=== PATIENT | female | born 1960 | race Caucasian/White ===

== ENCOUNTER → 2019-11-20 14:40 | Outpatient (CLI) | payer BC, SELFPAY ==
--- NOTE | 2019-11-20 14:47 | MM_ITS ---
PROCEDURE: MM DIG SCREENING MAMM BI W/CAD CLINICAL INDICATION: Routine Screening Mammogram There is no personal or family history of breast cancer COMPARISON: [facility] DIG MAMMO, CAD from 10/31/2015 [facility] MARLYS MAMMO,CAD from 08/10/2017 [facility] MAMMO,CAD from 08/10/2017 TECHNIQUE: Standard CC and MLO images and 3D Tomosynthesis was obtained. R2 CAD reviewed. FINDINGS: There is a markedly dense and somewhat heterogenic parenchymal pattern in both breasts and the findings are fairly symmetrical and bilateral. Marlys images are most helpful in this type of breast parenchyma and I see no suspicious abnormality in either breast. There are no suspicious microcalcifications. IMPRESSION: Dense and heterogenic parenchymal pattern most consistent with prominent fibrocystic change BI-RAD Category: 1 Negative FOLLOW-UP: 1YR 1 Year Follow-up (A letter has been sent to the patient regarding results of the study.) Dictated by: Dr. Kristopher Posada MD 11/21/2019 13:[address] Kristopher Posada MD in [place] 11/21/2019 13:41
== END ==
PROVIDERS: PCP Internal Medicine; Visit Provider Obstetrics & Gynecology
DX: Z12.31 Encounter for screening mammogram for malignant neoplasm of breast (principal)
CPT/HCPCS: 77063; 77067

== ENCOUNTER → 2021-06-04 15:13 | Outpatient (CLI) | payer BC, SELFPAY ==
--- NOTE | 2021-06-04 15:13 | MM_ITS ---
PROCEDURE: MM DIG SCREENING MAMM BI W/CAD Digital Breast Tomosynthesis Included CLINICAL INDICATION: visit for screening mammogram COMPARISON: MG [facility]YS MAMMO,CAD from 08/10/2017 MG [facility] MAMMO,CAD from 08/10/2017 MG MM DIG SCREENING MAMM BI W/CAD from 11/20/2019 TECHNIQUE: Standard CC and MLO images and 3D Tomosynthesis was obtained. R2 CAD reviewed. FINDINGS: The breasts are extremely dense which lowers the sensitivity of mammography. No suspicious appearing mass, malignant-appearing microcalcification, architectural distortion, or skin thickening. Correlation with physical exam needed in this patient with dense breast tissue. No significant change with no evidence of malignancy. Benign-appearing calcification noted in the left breast not significantly changed in the outer aspect centrally. Scattered areas of asymmetric tissue. Benign-appearing calcifications right breast. IMPRESSION: Benign findings. No evidence of malignancy BI-RAD Category: 2 Benign Finding FOLLOW-UP: 1 YR 1 Year Follow-up. Also recommend correlation with physical exam in this patient with dense breast tissue. Any palpable areas of concern should be examined with ultrasound. (A letter has been sent to the patient regarding results of the study.) Dictated by: Andrei Zhong MD 06/12/2021 09:59 Andrei Zhong MD in [place] 06/12/2021 09:59
== END ==
PROVIDERS: PCP Family Medicine; Visit Provider Obstetrics & Gynecology
DX: Z12.31 Encounter for screening mammogram for malignant neoplasm of breast (principal)
CPT/HCPCS: 77063; 77067

== ENCOUNTER → 2021-07-09 10:26 | Outpatient (CLI) | payer BC, SELFPAY | PROVIDERS: PCP Family Medicine; Visit Provider Nurse Practitioner | DX: Z20.822 Contact with and (suspected) exposure to COVID-19 (principal) | CPT/HCPCS: C9803; U0003; U0005 ==

== ENCOUNTER → 2021-08-19 09:43 | Outpatient (CLI) | payer BC, SELFPAY ==
--- NOTE | 2021-08-19 09:46 | XR_ITS ---
PROCEDURE: XR FOOT WT BEARING LT 3V CLINICAL INDICATION: pain COMPARISON: No exams were available for comparison FINDINGS: No fracture or dislocation. No lytic or blastic change. There is normal mineralization. Mild osteoarthritic change 1st MTP joint. Other findings:None. 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
--- NOTE | 2021-08-19 09:46 | XR_ITS ---
PROCEDURE: XR FOOT WT BEARING RT 3V CLINICAL INDICATION: pain COMPARISON: No exams were available for comparison FINDINGS: No fracture or dislocation. No lytic or blastic change. There is normal mineralization. The joint spaces are well-preserved. No significant degenerative/arthritic changes. No erosive changes evident. Other findings:Bony hypertrophy is present at the distal aspect of the 1st metatarsal. IMPRESSION: Mild bony hypertrophy of the distal 1st metatarsal otherwise negative Dictated by: Andrei Zhong MD 08/19/2021 12:22 Andrei Zhong MD in [place] 08/19/2021 12:22
== END ==
PROVIDERS: PCP Family Medicine; Visit Provider Podiatrist
DX: M79.672 Pain in left foot (principal); M79.671 Pain in right foot
CPT/HCPCS: 73630

== ENCOUNTER → 2021-11-05 14:42 | Outpatient (CLI) | payer BC, SELFPAY | PROVIDERS: PCP Family Medicine; Visit Provider Nurse Practitioner | DX: Z20.822 Contact with and (suspected) exposure to COVID-19 (principal) | CPT/HCPCS: C9803; U0003; U0005 ==

== ENCOUNTER → 2021-11-10 08:48 | Outpatient (CLI) | payer BC, SELFPAY ==
[2021-11-11 06:47] LABS: Covid-19 Nasal PCR Sendout Lex NOT DETECTED
== END ==
PROVIDERS: PCP Family Medicine; Visit Provider Nurse Practitioner
DX: Z20.822 Contact with and (suspected) exposure to COVID-19 (principal)
CPT/HCPCS: C9803; U0004; U0005

== ENCOUNTER → 2022-11-03 13:42 | Outpatient (CLI) | payer BC, SELFPAY ==
--- NOTE | 2022-11-03 13:43 | MM_ITS ---
PROCEDURE INFORMATION: Exam: MG Bilateral Screening 3D Mammography Exam date and time: 11/03/2022 1:38 PM Age: 62 years old Clinical indication: Screening examination; Additional info: Screening breast exam TECHNIQUE: Imaging protocol: Bilateral Screening tomosynthesis and 2D mammography including computer-aided detection (CAD) when performed. COMPARISON: 1. MG MM DIG SCREENING MAMM BI W/CAD 06/04/2021 3:23 PM 2. MG MM DIG SCREENING MAMM BI W/CAD 11/20/2019 3:23 PM 3. MG [facility] SC MARLYS MAMMO,CAD 08/10/2017 2:14 PM FINDINGS: MAMMOGRAPHY: Breast composition: The breasts are extremely dense, which lowers the sensitivity of mammography. Mass: No suspicious masses. Architectural distortion: No suspicious distortion. Calcifications: No suspicious calcifications. Asymmetric density: None. Skin thickening: None. Axillary adenopathy: None. IMPRESSION: No mammographic evidence of malignancy. Annual screening is recommended unless otherwise clinically indicated. ASSESSMENT: BI-RADS Category 1: Negative
== END ==
PROVIDERS: PCP Family Medicine; Visit Provider Obstetrics & Gynecology
DX: Z12.31 Encounter for screening mammogram for malignant neoplasm of breast (principal)
CPT/HCPCS: 77063; 77067

== ENCOUNTER 2022-12-18 10:28 | Day surgery (SDC) | payer BC, SELFPAY ==
[2022-12-18] VITALS (10 sets, daily range): BP systolic 81–139; BP diastolic 51–79; PULSE 63–86; RESP 14–18; TEMP 36.4–36.7; O2SAT 93–100; BMI 18.6
--- NOTE | 2022-12-18 11:00 | EXP.ANES.CKL ---
[facility] Disclaimer: The information contained in this section may have been updated after the patient was seen, as this information can be updated by other users. Medical History (Reviewed 12/18/22 @ 11: by Joe Agustin CRNA) No significant past medical history Surgical History (Reviewed 12/18/22 @ 11: by Joe Agustin CRNA) H/O hysterectomy with oophorectomy History of hysterectomy Hx of bone marrow donation Hx of umbilical hernia repair Family History (Reviewed 12/18/22 @ 11: by Joe Agustin CRNA) Other No significant family history Social History (Reviewed 12/18/22 @ 11: by Joe Agustin CRNA) Smoking Status: Never smoker alcohol intake: current substance use type: denies use current occupational status: employed Travel in the last 8 weeks: None household members: spouse housing: house marital status: education level: college service: No caffeine: Yes special lynn needs: No agree to transfusion: No do you feel safe at home: Yes victim of physical abuse: No victim of emotional abuse: No victim of sexual abuse: No would you like helpful sources: No [facility] Anesthesia Checklist Patient Identification Patient Identification: Arm Band and Verbal (Name & ) Structural Data Admitted From: Home Planned Operative Procedure/s: Colonoscopy Consent for Planned Operative Procedure(s) Verified: Yes NPO Status Verified Time NPO: 00:00 Airway Assessment C-Spine Mobility Assessed: Yes TMJ Mobility Assessed: Yes Dentition: Good Dentition Anesthesia Plan Anesthesia Risk discussed: Yes Anesthesia Plan: Verified ASA Class: I Anesthesia Type: MAC
--- NOTE | 2022-12-18 11:38 | HMH.SCOPE ---
Procedure: Date: 12/18/22 Patient Date of :: 1960 Procedure Performed:: Total colonoscopy to terminal ileum Indications:: Patient is a 62-year-old female referred by Dr. Gutierrez for screening colonoscopy. She did have a previous colonoscopy 10 years ago which was normal. Performing Provider:: Vernon Guzman MD Referring Provider:: Bo Gutierrez MD Sedation:: MAC Procedure:: Patient history was obtained and appropriate physical examination was performed. Patient's medications and allergies were reviewed. Informed consent was obtained after explaining the benefits, alternatives, and risks of the procedure including, but not limited to, bleeding, perforation, missed lesions, and adverse reaction to anesthesia medications. Patient was transported to endoscopy procedure room. Patient was connected to monitoring devices. Throughout the procedure the patient's blood pressure, pulse, and oxygen saturations were monitored continuously. Patient identification and planned procedure were verified by the staff. Patient was positioned in lateral decubitus position. Digital anorectal exam was performed. Variable stiffness Olympus colonoscope was inserted and advanced under direct visualization to the cecum. Adequacy of the colonic preparation was noted. The colonoscope was advanced a short distance into the terminal ileum. The colonoscope was then slowly withdrawn while carefully examining the color, texture, anatomy, and integrity of the mucosoa circumferentially. Within the rectum retroflexion was performed. Colonoscope was then withdrawn. Findings:: Normal colonoscopy to terminal ileum Recommendations:: Repeat colonoscopy up to 10 years Complications:: None immediate Estimated blood obtained (mL): 0
== END 2022-12-18 13:00 | disposition home or self-care (01) ==
PROVIDERS: PCP Family Medicine; Visit Provider Surgery
PROC: 0DJD8ZZ Inspection of Lower Intestinal Tract, Via Natural or Artificial Opening Endoscopic (ICD-10-PCS; CPT 45378; principal; 2022-12-18 11:30)
DX: Z12.11 Encounter for screening for malignant neoplasm of colon (principal)
CPT/HCPCS: 45378; J2704

== ENCOUNTER 2024-07-24 09:34 | Outpatient (CLI) | payer BC, SELFPAY ==
--- NOTE | 2024-07-24 09:39 | MM_ITS ---
PROCEDURE INFORMATION: Exam: MG Bilateral Screening 3D Mammography Exam date and time: 07/24/2024 9:53 AM Age: 64 years old Clinical indication: Screening. No family history of breast cancer. TECHNIQUE: Imaging protocol: Bilateral Screening tomosynthesis and 2D mammography including computer-aided detection (CAD) when performed. COMPARISON: 1. MG MM DIG SCREENING MAMM BI W/CAD 11/03/2022 1:38 PM 2. MG MM DIG SCREENING MAMM BI W/CAD 06/04/2021 3:23 PM 3. MG MM DIG SCREENING MAMM BI W/CAD 11/20/2019 3:23 PM 4. MG [facility]YS MAMMO,CAD 08/10/2017 2:14 PM FINDINGS: MAMMOGRAPHY: Breast composition: The breasts are extremely dense, which lowers the sensitivity of mammography. Mass: None. Architectural distortion: None. Calcifications: No suspicious calcifications. Asymmetric density: None. Skin thickening: None. Axillary adenopathy: None. IMPRESSION: No mammographic evidence of malignancy. Annual screening is recommended unless otherwise clinically indicated. ASSESSMENT: BI-RADS Category 1: Negative.
== END 2024-07-24 23:59 | disposition home or self-care (01) ==
LOC: RAD 09:36
PROVIDERS: PCP Family Medicine; Visit Provider Obstetrics & Gynecology
DX: Z12.31 Encounter for screening mammogram for malignant neoplasm of breast (principal)
CPT/HCPCS: 77063; 77067

== ENCOUNTER 2024-08-27 07:17 | Emergency (ER) | payer BC, SELFPAY ==
[2024-08-27] VITALS (8 sets, daily range): BP systolic 114–162; BP diastolic 63–109; PULSE 57–78; RESP 13–17; TEMP 36.6; O2SAT 95–100; BMI 18.6
--- NOTE | 2024-08-27 07:34 | CT_ITS ---
PROCEDURE INFORMATION: Exam: CTA Neck With Contrast Exam date and time: 08/27/2024 7:48 AM Age: 64 years old Clinical indication: Stroke-like symptoms; Visual disturbance; Additional info: Possible stroke, R ocular floaters TECHNIQUE: Imaging protocol: Computed tomographic angiography of the neck with contrast. Exam focused on the cervical segments of the vasculature. 3D rendering (Not supervised by radiologist): MIP and/or 3D reconstructed images were created by the technologist. Radiation optimization: All CT scans at this facility use at least one of these dose optimization techniques: automated exposure control; mA and/or kV adjustment per patient size (includes targeted exams where dose is matched to clinical indication); or iterative reconstruction. Contrast material: ISOVUE 370; Contrast volume: 100 ml; Contrast route: INTRAVENOUS (IV); COMPARISON: CT HEAD/BRAIN WO CON 08/27/2024 7:44 AM FINDINGS: Right common carotid artery: No stenosis. No dissection or occlusion. Right internal carotid artery: No stenosis of the extracranial segment. No dissection or occlusion. Right external carotid artery: No occlusion or stenosis of the origin. Left common carotid artery: No stenosis. No dissection or occlusion. Left internal carotid artery: No stenosis of the extracranial segment. No dissection or occlusion. Left external carotid artery: No occlusion or stenosis of the origin. Right vertebral artery: 4.6 mm fusiform dilatation of the distal right vertebral artery at the level of the foramen magnum. Left vertebral artery: No stenosis. No dissection or occlusion. Lymph nodes: Small calcified left hilar lymph nodes. Soft tissues: Normal. No significant soft tissue swelling. Bones/joints: Degenerative changes of the spine. Lungs: Mild scarring in the lung apices. IMPRESSION: 1. No significant stenosis or occlusion. 2. 4.6 mm fusiform dilatation of the distal right vertebral artery. REFERENCES: NASCET CRITERIA. The degree of stenosis in the cervical segment of the internal carotid artery is based on NASCET criteria. Normal is no stenosis. Mild is less than 50% stenosis. Moderate is 50-69% stenosis. Severe is 70% to 99% stenosis. Total occlusion is no detectable patent lumen.
--- NOTE | 2024-08-27 07:34 | CT_ITS ---
PROCEDURE INFORMATION: Exam: CTA Head With Contrast, Arteriography Exam date and time: 08/27/2024 7:48 AM Age: 64 years old Clinical indication: Stroke-like symptoms; Visual disturbance; Additional info: Possible stroke, R ocular floaters TECHNIQUE: Imaging protocol: Computed tomographic angiography of the head with contrast. Exam focused on the arteries. 3D rendering (Not supervised by radiologist): MIP and/or 3D reconstructed images were created by the technologist. Radiation optimization: All CT scans at this facility use at least one of these dose optimization techniques: automated exposure control; mA and/or kV adjustment per patient size (includes targeted exams where dose is matched to clinical indication); or iterative reconstruction. Contrast material: ISOVUE 370; Contrast volume: 100 ml; Contrast route: INTRAVENOUS (IV); COMPARISON: CT HEAD/BRAIN WO CON 08/27/2024 7:44 AM FINDINGS: ANTERIOR CIRCULATION: Right internal carotid artery: Intracranial segment is patent with no significant stenosis. No aneurysm. Right middle cerebral artery: No occlusion or significant stenosis. No aneurysm. Right anterior cerebral artery: No occlusion or significant stenosis. No aneurysm. Left internal carotid artery: Intracranial segment is patent with no significant stenosis. No aneurysm. Left middle cerebral artery: No occlusion or significant stenosis. No aneurysm. Left anterior cerebral artery: No occlusion or significant stenosis. No aneurysm. POSTERIOR CIRCULATION: Right vertebral artery: 4.6 mm fusiform dilatation of the distal right vertebral artery at the level of the foramen of [place]. Left vertebral artery: No occlusion or significant stenosis. No aneurysm. Basilar artery: No occlusion or significant stenosis. No aneurysm. Right posterior cerebral artery: No occlusion or significant stenosis. No aneurysm. Left posterior cerebral artery: No occlusion or significant stenosis. No aneurysm. Brain: No definite mass, mass effect, or midline shift. Cerebral ventricles: No ventriculomegaly. Bones/joints: Unremarkable. No acute fracture. Soft tissues: Unremarkable. IMPRESSION: 1. No large vessel occlusion or significant stenosis. 2. 4.6 mm fusiform dilatation of the distal right vertebral artery at the level of the foramen of [place].
--- NOTE | 2024-08-27 07:34 | CT_ITS ---
PROCEDURE INFORMATION: Exam: CT Head Without Contrast Exam date and time: 08/27/2024 7:44 AM Age: 64 years old Clinical indication: Stroke-like symptoms; Visual disturbance; Additional info: Possible stroke, R vision changes TECHNIQUE: Imaging protocol: Computed tomography of the head without contrast. Radiation optimization: All CT scans at this facility use at least one of these dose optimization techniques: automated exposure control; mA and/or kV adjustment per patient size (includes targeted exams where dose is matched to clinical indication); or iterative reconstruction. Other technique: STROKE PROTOCOL was implemented. COMPARISON: No relevant prior studies available. FINDINGS: Brain: Normal. No hemorrhage. Unremarkable white matter. No mass effect. Cerebral ventricles: No ventriculomegaly. Paranasal sinuses: Visualized sinuses are unremarkable. No fluid levels. Mastoid air cells: Visualized mastoid air cells are well aerated. Bones: Unremarkable. No acute fracture. Soft tissues: Unremarkable. IMPRESSION: No acute intracranial process evident. ASSESSMENT: ASPECTS ([place] Stroke Program Early CT Score) is 10.
--- NOTE | 2024-08-27 07:36 | ED_ITS ---
Discharge Plan Disposition Chief Complaint: Eye Problems Prescriptions Prescriptions: No Action estradiol 1 mg tablet 1 mg PO DAILY Qty: 90 4RF estradiol 0.01 % (0.1 mg/gram) cream 1 appful vaginal DAILY Qty: 42.5 2RF lactulose 10 gram/15 mL solution PO PRN Patient Comments: take 15 ML BY MOUTH EVERY DAY NEEDED hydroxyzine HCl 25 mg tablet 25 mg PO Q6H PRN (Reason: sleep/anxiety) Qty: 30 1RF Referrals Follow up/Referrals: Bo Gutierrez MD [Primary Care Provider] - See instructions Activity Restrictions/Add. Instructions Additional Instructions/Restrictions: Please present immediately to [facility] emergency department and tell them you are on the expect list. Clinical Impressions Clinical Impression: Alteration in vision, Aneurysm of right vertebral artery Print Language Print Language: Croatian Discharge ED Provider: Margarito Anderson General Adult HPI General Chief complaint: Eye Problems Stated complaint: seeing flashes of light/floater R peripheral visio Time Seen by Provider: 08/27/24 07:20 Mode of Arrival: Ambulatory Source of Information: Patient Limitations: No Limitations Description of Symptoms (Recalled from ER Triage Doc. by RN): r eye floater and flashes of light since yesterday @ noon History of Present Illness HPI narrative: Patient is a 64-year-old female with past medical history of previous hysterectomy on estrogen replacement who presents emergency department for evaluation of vision changes. Onset was acute, beginning at noon yesterday, patient experienced visual floaters in her right eye that moved with ocular movement, there is associated flashing. She has not lost her vision completely and has no changes in her left eye. No speech difficulties, no gait difficulties, no chest pain, no weakness or sensory changes. No other acute complaints at this time. Related Data Home Medications ?Medication ?Instructions ?Recorded ?Confirmed lactulose 10 gram/15 mL oral PO PRN 08/24/24 08/24/24 solution Previous Rx's ?Medication ?Instructions ?Recorded estradiol 0.01% (0.1 mg/gram) 1 appful vaginal DAILY #42.5 grams 08/19/23 vaginal cream estradiol 1 mg tablet 1 mg PO DAILY hormone #90 tabs 08/19/23 hydroxyzine HCl 25 mg tablet 25 mg PO Q6H PRN sleep/anxiety #30 08/24/24 tabs Allergies Allergy/AdvReac Type Severity Reaction Status Date / Time No Known Allergies Allergy Verified 08/24/24 09:57 [facility] Disclaimer: The information contained in this section may have been updated after the patient was seen, as this information can be updated by other users. Medical History (Updated 08/27/24 @ 09:51 by Margarito Anderson MD) Constipation Anxiety Vasomotor symptoms due to menopause Surgical History Hx of umbilical hernia repair Hx of bone marrow donation History of hysterectomy H/O hysterectomy with oophorectomy Family History Other No significant family history Social History Smoking Status: Never smoker alcohol intake: current alcohol intake frequency: holidays/special occasions only substance use type: denies use current occupational status: employed Travel in the last 8 weeks: None household members: spouse housing: house marital status: education level: college service: No caffeine: Yes special lynn needs: No agree to transfusion: No do you feel safe at home: Yes victim of physical abuse: No victim of emotional abuse: No victim of sexual abuse: No would you like helpful sources: No Other Medical History Have you received the Pneumonia Vaccine: No ROS Obtained: Yes Systems reviewed as appropriate & no additional complaints except as documented Physical Exam General General appearance: alert and in no apparent distress Head Head exam: atraumatic and normocephalic Eye Eye exam: Present PERRL and EOMI; Absent scleral icterus ENT ENT exam: Present mucous membranes moist Neck Neck exam: Present normal inspection Chest Chest inspection: Present normal inspection and symmetric chest wall rise Respiratory Respiratory exam: Present normal lung sounds bilaterally; Absent respiratory distress Cardiovascular Cardiovascular exam: Present regular rate and normal rhythm Abdominal Exam Abdominal exam: Present soft; Absent tenderness Extremities Exam Extremities exam: Present normal inspection Neurological Exam Neurological exam: Present alert, oriented X3 and normal gait; Absent CN II-XII intact (Cranial nerves II through XII grossly intact with the exception of vision. Right monocular inferior lateral difficulty distinguishing number of fingers. Right eye 20/70, left eye 20/50, both 20/40) or motor sensory deficit Psychiatric Psychiatric exam: Present normal affect Skin Skin exam: Present warm and dry Medical Decision Making Medical Records Screening: Per USPSTF and CDC recommendations, given the prevalence of disease in our region, it is our hospital?s policy to screen for HIV and viral Hepatitis for all patients aged 18 and over and those with ongoing risk factors. Phillip Inquiry Pt receiving controlled substance: No Vital Signs: 08/27/24 07:19 08/27/24 07:23 08/27/24 07:30 Temperature 98 F Temperature Source Oral Pulse Rate 71 66 Pulse Rate [Right] 69 Respiratory Rate 16 Blood Pressure 162/78 H 130/109 H Blood Pressure [Right Arm] 162/78 H Blood Pressure Mean 102 116 Blood Pressure Mean [Right Arm] 106 02 Sat by Pulse Oximetry 100 100 99 Oxygen Delivery Method Room Air Room Air Room Air 08/27/24 08:14 08/27/24 08:30 08/27/24 09:00 Temperature Temperature Source Pulse Rate 72 57 L 58 L Pulse Rate [Right] Respiratory Rate 13 17 Blood Pressure 127/82 135/79 115/63 Blood Pressure [Right Arm] Blood Pressure Mean 97 Blood Pressure Mean [Right Arm] 02 Sat by Pulse Oximetry 98 99 98 Oxygen Delivery Method Room Air Room Air Room Air 08/27/24 09:30 Temperature Temperature Source Pulse Rate 58 L Pulse Rate [Right] Respiratory Rate 15 Blood Pressure 114/80 Blood Pressure [Right Arm] Blood Pressure Mean 85 Blood Pressure Mean [Right Arm] 02 Sat by Pulse Oximetry 95 Oxygen Delivery Method Room Air Lab Data Lab Results 08/27/24 07:42: WBC 4.5 L, RBC 4.68, Hgb 14.6, Hct 43.4, MCV 92.7, MCH 31.1, MCHC 33.6, RDW 12.9, Plt Count 220, MPV 6.9 L, Neut % (Auto) 55.7, Lymph % (Auto) 32.1, [place] % (Auto) 6.1, Eos % (Auto) 4.6, Baso % (Auto) 1.6, Neut # (Auto) 2.5, Lymph # (Auto) 1.5, [place] # (Auto) 0.3, Eos # (Auto) 0.2, Baso # (Auto) 0.1, PT 9.8 L, INR 0.86 L, APTT 24.5, Sodium 142, Potassium 3.7, Chloride 105, Carbon Dioxide 31 H, Anion Gap 9.7, BUN 18 H, Creatinine 0.70, Estimated Creat Clear 48, Estimated GFR 85, Est GFR ( Amer) 103, Glucose 93, Calcium 9.2, Total Bilirubin 0.5, AST 38 H, ALT 24, Alkaline Phosphatase 43, Troponin I < 0.01, Total Protein 8.1, Albumin 4.7, Globulin 3.4 H, Albumin/Globulin Ratio 1.4, Triglycerides 131, Cholesterol 201 H, LDL Cholesterol Direct 69.92 L, VLDL Cholesterol 26, HDL Cholesterol 91 H, Cholesterol/HDL Ratio 2.2, Plasma/Serum Alcohol < 10 08/27/24 07:42 08/27/24 07:42 Orders (Tests/Meds): ED MEDICATIONS Generic Name Dose Route Start Last Admin Trade Name Freq PRN Reason Stop Dose Admin Sodium Chloride 10 ml 08/27/24 07:34 Sodium Chloride 0.9% 10ml Flush Syringe IV 09/26/24 07:33 NEEDED PRN Maintain IV Site Discontinued Medications Generic Name Dose Route Start Last Admin Trade Name Freq PRN Reason Stop Dose Admin Iopamidol 100 ml 08/27/24 08:16 08/27/24 08:16 Iopamidol-370 (76%);100ml Bottle IV 08/27/24 08:17 100 ml ONCE ONE Administration Sodium Chloride 10 ml 08/27/24 08:16 08/27/24 08:16 Sodium Chloride 0.9% 10ml Syr (Rad Only) IV 08/27/24 08:17 10 ml ONCE ONE Administration Sodium Chloride 50 ml 08/27/24 08:16 08/27/24 08:16 0.9 % Sodium Chloride 50 Ml Vial IV 08/27/24 08:17 50 ml ONCE ONE Administration ORDERS Category Date Time Status CT angio head Stat Cat Scan 08/27/24 07:[address] angio neck Stat Cat Scan 08/27/24 07:[address] head/brain wo con Stat Cat Scan 08/27/24 07:34 Taken POCUS Point of Care (ER Only) Stat Exams 08/27/24 07:21 Completed Activated Partial Thrombo Time Stat Lab 08/27/24 07:42 Completed Complete Blood Count Auto Diff Stat Lab 08/27/24 07:42 Completed Comprehensive Metabolic Panel Stat Lab 08/27/24 07:42 Completed Ethyl Alcohol Stat Lab 08/27/24 07:42 Completed HIV (1&2) Antibody Rapid Stat Lab 08/27/24 07:42 Received Hep C Ab with Reflex to RNA Stat Lab 08/27/24 07:42 Received Lipid Panel Stat Lab 08/27/24 07:42 Completed Prothrombin Time INR Stat Lab 08/27/24 07:42 Completed Troponin I Q3H Lab 08/27/24 10:45 Ordered Troponin I Q3H Lab 08/27/24 13:45 Ordered Troponin I Stat Lab 08/27/24 07:42 Completed ECG Request Stat Y 08/27/24 07:34 Ordered ECG Data Tracing #1: Independently interpreted by me rate is 57, rhythm is regular, axis is normal, no ST elevation in anatomical contiguous leads, QTc 404 Medical Decision Narrative: In summary patient is 64-year-old female past medical history described above presents emergency department for acute monocular vision changes. Patient is hemodynamically stable and nontoxic-appearing upon arrival, afebrile. With the exception of vision changes patient otherwise has a nonfocal neurologic exam, has no other signs that would have any concern for posterior circulation stroke although it does remain on the differential. Differential also includes retinal detachment, vitreous detachment, among others. [id number] ultrasound at bedside shows no obvious retinal detachment, optic nerve sheath diameter borderline at 5 mm. Visual acuity is 20/70 in the right eye, 20/50 in the left eye. Possible right monocular inferior lateral quadrantanopia. Ocular pressures 12 mmHg in the right eye, 15 mmHg in the left eye excluding acute angle-closure glaucoma. Patient will undergo rapid stroke protocol with hematologic labs, noncontrasted CT scan of the head, CTA of the head and neck. Workup reviewed by me, hematologic labs are nonactionable. I discussed case with Dr. Talbert regarding diagnostic evaluation, noncontrasted CT scan of the head is unremarkable. CTA of the head and neck remarkable only for 4.6 mm fusiform dilatation of the distal right vertebral artery at the level of foramen of monro. No large vessel occlusion. Patient is well outside the window for tPA and has an NIH of either 0 or 1 depending on time of evaluation as her symptoms are stuttering. Given that she has acute monocular vision changes with floaters and flashers my suspicion for primary ocular pathology rather than stroke is high. Patient will benefit from expedited evaluation. The case was discussed with [facility] regarding management. I discussed the case with [facility] brennon Johnson who graciously accepted patient for transfer for continued evaluation at this time. In the ER they can evaluate for ophthalmologic involvement and also coordinate outpatient follow-up for her incidental fusiform aneurysm. Procedure: Procedure performed was ocular ultrasound. Procedure performed by Margarito Anderson. Using real-time ultrasound of the right eye no obvious large vitreous or retinal detachment was identified. Optic nerve sheath diameter 5 mm, borderline. Images were saved to permanent archive. Patient tolerated the procedure well. There were no immediate complications. Critical Care Critical Care Time Critical Care Time: No
--- NOTE | 2024-08-27 07:38 | PC.NURSE ---
visual eye exam left eye:20/50 right eye:20/70 both eyes:20/40
[2024-08-27 07:55] LABS: Basophils # 0.1 K/mm3 (0-0.2); Basophils % 1.6 % (0.1-2.0); Eosinophils # 0.2 K/mm3 (0.0-0.4); Eosinophils % 4.6 % (0.1-12.0); Hematocrit 43.4 % (37.0-47.0); Hemoglobin 14.6 g/dL (12.2-16.2); Lymphocytes # 1.5 K/mm3 (0.7-4.5); Lymphocytes % 32.1 % (10-50); Mean Corpuscular HGB Conc 33.6 g/dL (31.8-35.4); Mean Corpuscular Hemoglobin 31.1 pg (27.0-31.2); Mean Corpuscular Volume 92.7 fl (81-99); Mean Platelet Volume 6.9 fl (7.4-10.4); Monocytes # 0.3 K/mm3 (0.1-1.0); Monocytes % 6.1 % (1.7-9.3); Neutrophils # 2.5 K/mm3 (1.8-7.8); Neutrophils % 55.7 % (37.0-80.0); Platelet Count 220 K/mm3 (142-424); Red Blood Count 4.68 M/mm3 (4.20-5.40); Red Cell Distribution Width 12.9 % (11.5-17.5); White Blood Count 4.5 K/mm3 (4.8-10.8)
[2024-08-27 07:56] LABS: Albumin Level 4.7 g/dl (3.5-5.0); Chloride 105 mmol/L (98-107); Potassium 3.7 mmoL/L (3.5-5.1); Sodium 142 mmol/L (136-145)
[2024-08-27 07:58] LABS: Blood Urea Nitrogen 18 mg/dl (7-17); Creatinine Clearance Estimated 48 mL/min (50-200); Estimated Glomerular Filt Rate 85 ml/min (>60); GFR (African American) 103 ML/MIN (>60)
[2024-08-27 07:59] LABS: Alanine Aminotransferase 24 U/L (12-78); Albumin/Globulin Ratio 1.4 (1.1-1.8); Alkaline Phosphatase 43 U/L (38-126); Anion Gap 9.7 mEq/L (5-15); Aspartate Amino Transferase 38 U/L (14-36); Bilirubin,Total 0.5 mg/dl (0.2-1.3); Calcium 9.2 mg/dl (8.4-10.2); Carbon Dioxide 31 mmol/L (22.0-30.0); Chol/HDL Ratio 2.2 (1-3.5); Cholesterol 201 mg/dl (140-200); Globulin 3.4 g/dL (1.3-3.2); Glucose 93 mg/dl (74-100); HDL Cholesterol 91 mg/dl (40-60); Total Protein,Serum 8.1 g/dl (6.3-8.2); Triglycerides 131 mg/dl (30-150); VLDL Cholesterol 26 mg/dL (0-40)
[2024-08-27 08:01] LABS: Ethyl Alcohol < 10 mg/dl (0-10)
[2024-08-27 08:03] LABS: Activated Partial Thrombo Time 24.5 seconds (22.8-30.6); INR 0.86 (0.9-1.1); Prothrombin Time 9.8 seconds (10.1-12.5)
[2024-08-27 08:11] LABS: Direct LDL Cholesterol 69.92 mg/dL (100-129)
--- NOTE | 2024-08-27 08:11 | ECG_ITS ---
APPROVED REPORT Exam: Resting ECG HR:57 bpm ECG Measurements Heart Rate 57 AXES CA 178 P 85 QRSd 93 QRS 80 QT 410 T 84 QTc 404 Conclusion Sinus bradycardia Electronically signed by : ROSANNA INIGUEZ, 08/31/2024 07:34:20
[2024-08-27 08:16] LABS: Troponin I < 0.01 ng/ml (0.00-0.034)
[2024-08-27] MEDS: SODIUM CHLORIDE 0.9% 10ML SYR (RAD ONLY) 10 ML IV (08:16)
[2024-08-27] MEDS: 0.9 % SODIUM CHLORIDE 50 ML VIAL IV (08:16)
[2024-08-27] MEDS: IOPAMIDOL-370 (76%);100ML BOTTLE 100 ML IV (08:16)
--- NOTE | 2024-08-27 08:39 | PC.NURSE ---
[facility] CONTACTED AT THIS TIME, WILL CALL BACK
--- NOTE | 2024-08-27 09:22 | PC.NURSE ---
DR INIGUEZ AT BEDSIDE TO UPDATE PT AND FAMILY
[2024-08-27 12:33] LABS: HIV (1&2) Antibody Rapid NONREACTIVE (NONREACTIVE)
[2024-08-29 05:29] LABS: HCV Ab Non Reactive (Non Reactive)
== END 2024-08-27 10:23 | disposition short-term general hospital (02) ==
PROVIDERS: Emergency Provider Emergency Medicine; PCP Family Medicine
DX: I72.6 Aneurysm of vertebral artery (principal); H54.7 Unspecified visual loss; H43.391 Other vitreous opacities, right eye; H53.19 Other subjective visual disturbances
CPT/HCPCS: 70450; 70496; 70498; 80053; 80061; 80320; 84484; 85025; 85610; 85730; 86803; 87389; 93005; 99285; G0480; Q9967